=== PATIENT | male | born 2000 | race Two or more races ===

== ENCOUNTER 2024-01-03 18:48 | Emergency (ER) | payer OTHER ==
[~2024-01-03] VITALS: Ht 172.7 cm; Wt 68.2 kg
[2024-01-03 19:16] VITALS: BP 140/106; PULSE 99; RESP 16; TEMP 98.1
[2024-01-03] MEDS: KETOROLAC TROMETHAMINE 60 MG/2 ML VIAL IM ONE (20:45)
[2024-01-03] MEDS: BACITRACIN 0.9 GM PACKET OINTMENT TP ONE (20:46)
[2024-01-03] MEDS: PERTUSS(ACELL),DIPH,TET/PF 0.5 ML SYRINGE [ADULT] IM. ONE (20:46)
[2024-01-03] MEDS: HYDROCODONE/ACETAMINOPHEN 5-325 MG TABLET PO ONE (20:46)
== END 2024-01-03 22:33 | disposition home or self-care (01) ==
LOC: EMS 18:52
DX: S70.01XA Contusion of right hip, initial encounter (principal); S80.01XA Contusion of right knee, initial encounter; S90.31XA Contusion of right foot, initial encounter; W01.0XXA Fall on same level from slipping, tripping and stumbling without subsequent striking against object, initial encounter; Y93.89 Activity, other specified; Y92.89 Other specified places as the place of occurrence of the external cause; Y99.8 Other external cause status
CPT/HCPCS: 99284; 73502; 73552; 73590; 73630; 90715; 90471; 96372; J1885